=== PATIENT | female | born 1995 | race Caucasian/White ===

== ENCOUNTER 2016-11-01 23:28 | Emergency (ER) | payer OTHER ==
[2016-11-01 22:47] LABS: INFLUENZA A NEG (NEG); INFLUENZA B NEG (NEG)
[~2016-11-01 23:28] MED LIST: ALBUTEROL17 GM INH; AMOXICILLIN500 M1 PO; BACTRIM DS TABL1 TA1 PO; CIPRO PO; DICYCLOMINE HCL20 MG; KEFLEX500 MG PO; LORTAB ELIXIR15 ML PO; MOTRIN400 MG PO; MUCINEX1200 MG/BO; NO MEDICATIONS; ORTHO TRI-7 DAYSX 3 PO; PEPCID PO; PHENERGAN25 MG PO; PREDNISONE; PRILOSEC; PYRIDIUM100 MG PO; ZITHROMAX; ZITHROMAX PO; ZOFRAN PO
== END 2016-11-02 00:32 | disposition home or self-care (01) ==
LOC: SED 23:28
PROVIDERS: Emergency Medicine
DX: J02.9 Acute pharyngitis, unspecified (principal); R11.2 Nausea with vomiting, unspecified; F17.200 Nicotine dependence, unspecified, uncomplicated
CPT/HCPCS: 87651; 87804; 99282

== ENCOUNTER 2016-12-09 22:01 | Emergency (ER) | payer OTHER | END 2016-12-09 23:15 | disposition home or self-care (01) | LOC: SED 22:01 | DX: R11.2 Nausea with vomiting, unspecified (principal) | CPT/HCPCS: 99282 ==

== ENCOUNTER 2017-02-27 21:46 | Emergency (ER) | payer OTHER ==
[~2017-02-27] VITALS: Ht 160 cm; Wt 52.2 kg
[2017-02-27] MEDS ORDERED: NO MEDICATIONS (22:08)
[2017-02-27 22:44] LABS: BASOPHIL# 0.1 X10e3 (0-0.3); BASOPHIL% 0.4 % (0-2.5); DIFF IND NO; EOSINOPHIL# 0.1 X10e3 (0-0.7); EOSINOPHIL% 0.5 % (0.0-7.0); HEMATOCRIT 41.8 % (35.0-45.0); HEMOGLOBIN 14.2 gm/dL (12.0-16.0); LYMPHOCYTE# 2.2 X10e3 (1.0-3.5); LYMPHOCYTE% 16.1 % (17.0-45.0); MEAN CELL VOLUME 84.1 FL (83-96); MEAN CORPUSCULAR HEMOGLOBIN 28.6 PG (28-34); MEAN PLATELET VOLUME 8.3 FL (6.5-11.5); MONOCYTE# 1.6 X10e3 (0-1.0); MONOCYTE% 11.5 % (3.0-12.0); NEUTROPHIL# 9.8 X10e3 (1.5-7.1); NEUTROPHIL% 71.5 % (40-75); PLATELET COUNT 182 X10e3 (140-420); RED BLOOD COUNT 4.97 X10e (3.90-5.30); RED CELL DISTRIBUTION WIDTH 12.9 % (11.0-15.5); WHITE BLOOD COUNT 13.7 X10e3 (4.0-10.5)
== END 2017-02-28 00:17 | disposition home or self-care (01) ==
LOC: SED 21:46
PROVIDERS: Physician Assistant Medical
DX: J03.90 Acute tonsillitis, unspecified (principal); F17.210 Nicotine dependence, cigarettes, uncomplicated
CPT/HCPCS: 85025; 86308; 99283